=== PATIENT | male | born 1990 ===

== ENCOUNTER 2017-02-10 05:10 | Emergency (ER) | payer SELFPAY ==
[2017-02-10 05:24] VITALS: BP 140/91; PULSE 62; RESP 16; TEMP 97.8; O2SAT 99
--- NOTE | 2017-02-10 05:43 | ED PDOC ---
HPI: Allergic Reaction Time Seen by Provider: 02/10/17 05:16 Chief Complaint (Nursing): Allergic Reaction Chief Complaint (Provider): Allergic reaction History Per: Patient History/Exam Limitations: no limitations Onset/Duration Of Symptoms: Mins (just prior to arrival) Current Symptoms Are (Timing): Still Present Possible Cause: Insect Bite Associated Symptoms: Skin Rash (chest), Swelling (upper lip) Home/EMS Treatment: None Severity: Moderate Additional Complaint(s): 27 year old male with no pertinent medical history presents to the ED with complaints of a possible allergic reaction that he noticed when he woke up just prior to arrival. Patient states that he is staying at the [facility] in [place]. He reports sleeping on top of the bed's comforter today, and waking up with an itchy rash and a swollen upper lip. Patient denies having difficulty breathing. PMD: Not provided. Past Medical History Reviewed: Historical Data, Nursing Documentation, Vital Signs Vital Signs: Last Vital Signs Temp 97.8 F 02/10/17 05:22 Pulse 62 02/10/17 05:22 Resp 16 02/10/17 05:22 BP 140/91 H 02/10/17 05:22 Pulse Ox 99 02/10/17 05:22 - Medical History PMH: No Chronic Diseases - Surgical History Surgical History: No Surg Hx - Family History Family History: States: No Known Family Hx - Social History Current smoker - smoking cessation education provided: No Alcohol: Social Drugs: Denies - Home Medications Home Medications: Ambulatory Orders Medication Instructions Recorded DiphenhydrAMINE [Benadryl] 50 mg PO BID #20 cap 02/10/17 Loratadine [Claritin] 10 mg PO DAILY #20 tab 02/10/17 predniSONE [predniSONE Tab] 20 mg PO DAILY 3 Days 02/10/17 - Allergies Allergies/Adverse Reactions: Allergies Allergy/AdvReac Type Severity Reaction Status Date / Time No Known Allergies Allergy Verified 02/10/17 05:24 Review of Systems ROS Statement: Except As Marked, All Systems Reviewed And Found Negative Respiratory: Negative for: Shortness of Breath (denies difficulty breathing) Skin: Positive for: Rash, Other (swelling of upper lip) Physical Exam - Reviewed Nursing Documentation Reviewed: Yes Vital Signs Reviewed: Yes - Physical Exam Appears: Positive for: Well, Non-toxic, No Acute Distress Head Exam: Positive for: ATRAUMATIC, NORMOCEPHALIC Skin: Positive for: Warm, Dry, Rash (scarce papules on chest. swollen lip.) Eye Exam: Positive for: Normal appearance ENT: Positive for: Other (swollen lip) Neck: Positive for: Normal Cardiovascular/Chest: Positive for: Regular Rate, Rhythm, Chest Non Tender Respiratory: Positive for: Normal Breath Sounds. Negative for: Decreased Breath Sounds, Respiratory Distress Gastrointestinal/Abdominal: Positive for: Normal Exam, Soft. Negative for: Tenderness Back: Positive for: Normal Inspection Extremity: Positive for: Normal ROM Neurologic/Psych: Positive for: Alert, Oriented (3x) - ECG O2 Sat by Pulse Oximetry: 99 (RA) Pulse Ox Interpretation: Normal Disposition - Clinical Impression Clinical Impression: Allergic reaction - Disposition Referrals: [facility] [Outside] Disposition Time: 05:40 Condition: STABLE Prescriptions: DiphenhydrAMINE [Benadryl] 50 mg PO BID #20 cap Loratadine [Claritin] 10 mg PO DAILY #20 tab predniSONE [predniSONE Tab] 20 mg PO DAILY 3 Days Instructions: General Allergic Reaction (ED) Medical Decision Making Medical Decision Makin:16 Initial impression: 27 year old male with a mild allergic reaction to possible bug bite. Not suspicious of scabies or bed bugs. Initial plan: * Benadryl 50 mg PO * prednisone tab 20 mg PO * apply ice to affected area * reevaluation Scribe Attestation: Documented by Barbara Kidd, acting as a scribe for Josh King MD. Provider Scribe Attestation: All medical record entries made by the Scribe were at my direction and personally dictated by me. I have reviewed the chart and agree that the record accurately reflects my personal performance of the history, physical exam, medical decision making, and the department course for this patient. I have also personally directed, reviewed, and agree with the discharge instructions and disposition.
== END 2017-02-10 06:09 | disposition home or self-care (01) ==
LOC: H.ER 05:10
DX: T78.40XA Allergy, unspecified, initial encounter (principal)